=== PATIENT | female | born 1950 | race Asian ===

== ENCOUNTER 2019-05-31 16:23 | Outpatient (CLI) | payer MEDICARE, MEDICAID | END 2019-05-31 23:59 | disposition home or self-care (01) | LOC: RAD 16:23 | PROVIDERS: ATTEND Internal Medicine Hematology & Oncology | DX: R06.00 Dyspnea, unspecified (principal); C16.9 Malignant neoplasm of stomach, unspecified | CPT/HCPCS: 71045-TC ==

== ENCOUNTER 2019-07-11 14:02 | Inpatient (IN) | payer MEDICARE, MEDICAID ==
[2019-07-11] VITALS (24 sets, daily range): BP systolic 80–146; BP diastolic 47–86
[~2019-07-11] VITALS: Ht 152.4 cm; Wt 63.5 kg
--- NOTE | 2019-07-11 14:06 | NUR ---
EKATERINA, FROM [facility], C/O "ALLERGIC REACTION TO CHEMO" , "I FEEL COLD, SHAKY AND DIFFICULTY BREATHING". BG 108, BENADRYL AND HYDROCODONE GIVEN TELECOMMUNICATIONS SUPPORT. TO ER BED 8, HOOKED TO MONITOR, CHANGED TO GOWN, WARM BLANKET PROVIDED, AWAITING MD GRACE.
--- NOTE | 2019-07-11 14:18 | NUR ---
DR GODINEZ AT BEDSIDE
[2019-07-11] MEDS ORDERED: IV NS 0.9% 1,000 ML BAG IV ONE ×2 (14:30→16:00)
[2019-07-11] MEDS ORDERED: ACETAMINOPHEN ES 500 MG TABLET PO ONE (14:30)
[2019-07-11] MEDS ORDERED: FAMOTIDINE/PF INJ 20 MG/2 ML VIAL IV ONE ×2 (14:30→14:38)
[2019-07-11] MEDS ORDERED: ACETAMINOPHEN ES 500 MG TABLET ONE (14:37)
[2019-07-11 14:46] LABS: BASOPHILS % (AUTO) 0.1 % (0.0-2.0); EOSINOPHILS % (AUTO) 0.2 % (0.0-6.0); HEMATOCRIT 33 % (33-45); HEMOGLOBIN 10.9 g/dL (11.5-14.8); LYMPHOCYTES # (AUTO) 0.4 /CMM (0.8-4.8); LYMPHOCYTES % (AUTO) 5.2 % (20.0-44.0); MEAN CORPUSCULAR HGB CONC 33 g/dl (31.0-36.0); MEAN CORPUSCULAR VOLUME 100 fL (82-100); MONOCYTES # (AUTO) 0.2 /CMM (0.1-1.30); MONOCYTES % (AUTO) 2.4 % (2.0-12.0); NEUTROPHILS % (AUTO) 92.1 % (43.0-81.0); PLATELET COUNT (AUTO) 262 /CMM (150-450); RED BLOOD CELL COUNT(AUTO) 3.31 MIL/uL (4.0-5.2); WHITE BLOOD COUNT (AUTO) 7.6 K/uL (4.3-11.0)
[2019-07-11 14:54] LABS: CREATININE 0.6 mg/dL (0.6-1.3); POTASSIUM 3.1 mmol/L (3.5-5.1)
[2019-07-11 15:00] LABS: ALBUMIN 2.7 g/dL (3.4-5.0); BILIRUBIN,DIRECT 0.2 mg/dL (0.0-0.2); BILIRUBIN,TOTAL 0.4 mg/dL (0.2-1.0); TOTAL PROTEIN, SERUM 5.8 g/dL (6.4-8.2)
[2019-07-11] MEDS ORDERED: POTASSIUM CHLORIDE 20 MEQ TAB.PRT.SR PO ONE ×2 (15:21→15:30)
[2019-07-11 15:41] LABS: APPEARANCE,URINE Clear (CLEAR); BILIRUBIN,URINE SMALL (NEGATIVE); BLOOD, URINE Negative Ery/uL (NEGATIVE); COLOR,URINE Dark (YELLOW); KETONES,URINE 80 (NEGATIVE); LEUKOCYTE ESTERASE ,URINE Negative (NEGATIVE); NITRITE, URINE Negative (NEGATIVE); PH,URINE 5.5 (5.0-8.0); PROTEIN,URINE Negative (NEGATIVE); UGLUCOSE Negative (NEGATIVE); UROBILINOGEN,URINE 0.2 EU/dL (0.2)
[2019-07-11 16:00] LABS: BACTERIA,URINE None seen /HPF (None Seen); RBC,URINE 0-2 /HPF (0-2)
[2019-07-11] MEDS ORDERED: VANCOMYCIN 1 GM in IV D5W 250 ML IV ONE (16:00)
[2019-07-11] MEDS ORDERED: CEFEPIME 1 GM in IV D5W 50 ML IV ONE (16:00)
[2019-07-11 16:01] LABS: SQUAMOUS EPITHELIAL CELL,UR Few /HPF (None Seen)
--- NOTE | 2019-07-11 16:31 | NUR ---
CALLED FOR BED
--- NOTE | 2019-07-11 16:35 | NUR ---
EPIC CLOUD SOFTWARE ENGINEER PAGED
[2019-07-11] MEDS ORDERED: LORA1TAB PO (16:52)
[2019-07-11] MEDS ORDERED: ZOLP5TAB8 PO (16:52)
[2019-07-11] MEDS ORDERED: PANT40TA4 PO (16:52)
--- NOTE | 2019-07-11 16:55 | NUR ---
room [id number]
[2019-07-11] MEDS ORDERED: NOREPINEPHRINE 8 MG in IV D5W 500 ML IV ONE (17:00)
--- NOTE | 2019-07-11 17:03 | NUR ---
REPORT GIVEN TO JARED OF ICU
[2019-07-11] MEDS ORDERED: MAG HYDROX/AL HYDROX/SIMETH 30 ML UDC PO PRN (18:00)
[2019-07-11] MEDS ORDERED: HYDROCODONE/APAP 5/325MG 1 EACH TABLET PO PRN (18:00)
[2019-07-11] MEDS ORDERED: MAGNESIUM HYDROXIDE 30 ML UDC PO PRN (18:00)
[2019-07-11] MEDS ORDERED: IV NS 0.9% 1,000 ML IV SCH (18:00)
[2019-07-11] MEDS ORDERED: ACETAMINOPHEN 325 MG TABLET PO PRN (18:00)
[2019-07-11] MEDS ORDERED: Z GUARD REMEDY 2 OZ OINT TP PRN (18:00)
[2019-07-11] MEDS ORDERED: ONDANSETRON HCL/PF 4 MG/2 ML VIAL IVP PRN (18:00)
--- NOTE | 2019-07-11 18:00 | NUR ---
PATIENT TRANSFERRED TO ICU WITH RN AND EMT.
--- NOTE | 2019-07-11 18:08 | NUR ---
RN NOTES RECEIVED PT FROM 254 FROM ER , PT IS A/Ox4, ON RA , RESPIRATION EVEN AND UNLABORED, NO SOB NOTED, BP =98/65 , PT ON LEVO GTT AT 10MCG/MIN. PT JARRETT ANY DISTRESS , PT STATED FEELS BETTER NOW , ON TELE SR HR IN 70'S ,PT C/O PAIN ON L HAND IV SITE G 18 , SWELLING NOTED AT THE SITE, IV D/MAKAYLA, PT VOIDING PER BEDPAN, R UPPER CHEST PORT-A-CATH SITE , CLEAN, DRY AND INTACT, SR UP x3, CALL LIGHT WITHIN EASY REACH , BED LOCKED AND IN LOWEST POSITION, CONTINUE TO MONITOR .
[2019-07-11] MEDS ORDERED: NOREPINEPHRINE 8 MG in IV D5W 500 ML IV PRN (18:30)
--- NOTE | 2019-07-11 19:00 | NUR ---
RN NOTES REPORT GIVEN TO PM NURSE FOR CONTINUITY OF CARE .
[2019-07-11 19:09] LABS: ALBUMIN 2.5 g/dL (3.4-5.0); BILIRUBIN,DIRECT 0.2 mg/dL (0.0-0.2); BILIRUBIN,TOTAL 0.5 mg/dL (0.2-1.0); TOTAL PROTEIN, SERUM 5.5 g/dL (6.4-8.2)
--- NOTE | 2019-07-11 19:30 | NUR ---
RN NOTES RECEIVED PATIENT ASLEEP ON BED. BREATHING EVEN AND UNLABORED IN ROOM AIR. SATURATION 95%. AFEBRILE. PATIENT IS AOX4 SR ON TELE MONITOR. DENIES ANY PAIN OR NAUSEA AND VOMITING. IV SITE ON RIGHT CHEST MADAI CATH WITH NS @ 125 ML/HR INTACT AND PATENT AND LEVOPHED @ 6 MCG/MIN TITRATED PROTOCOL ORDER. REMINDED TO USED CALL LIGHT FOR ASSISTANCE. ABLE TO TEACH BACK. KEPT PT CLEAN AND DRY. WILL CONTINUE TO MONITOR.
--- NOTE | 2019-07-11 19:45 | NUR ---
RN N0TES S/E BY DR. WALLACE AND DR. LAM AT BEDSIDE.
[2019-07-11] MEDS ORDERED: FEE PK DOSING 1 MIN EA MC ONE (19:59)
[2019-07-11] MEDS: CEFEPIME 2 GM in IV NS 0.9% 50 ML IV SCH (20:52)
[2019-07-11] MEDS: LORAZEPAM 1 MG TABLET PO SCH (21:13)
--- NOTE | 2019-07-11 21:30 | NUR ---
RN NOTES CALLED AND SPOKE WITH DR. FALLON THAT THE PATIENT WANTS DNR/DNI CODE STATUS.
[2019-07-11] MEDS: VANCOMYCIN 0.75 GM in IV D5W 250 ML IV SCH (21:50)
--- NOTE | 2019-07-11 21:50 | NUR ---
RN NOTES CALLED PHARMACY AND SPOKE TO RANDALL CLARIFIED THAT VANCOMYCIN WAS GIVEN AT 5PM TODAY AND THERE'S A SCHEDULE VANCOMYCIN AT 10PM. PER RANDALL TO GIVE THE DOSE AT 5 AM AND FOLLOW UP PHARMACY IN THE MORNING.
[2019-07-11] MEDS ORDERED: ZOLPIDEM TARTRATE 5 MG TABLET PO SCH (22:00)
[2019-07-12] VITALS (97 sets, daily range): BP systolic 78–146; BP diastolic 14–103
[2019-07-12 04:23] LABS: BASOPHILS % (AUTO) 0.2 % (0.0-2.0); EOSINOPHILS % (AUTO) 0.3 % (0.0-6.0); HEMATOCRIT 31 % (33-45); HEMOGLOBIN 10.5 g/dL (11.5-14.8); LYMPHOCYTES # (AUTO) 1.2 /CMM (0.8-4.8); LYMPHOCYTES % (AUTO) 11.2 % (20.0-44.0); MEAN CORPUSCULAR HGB CONC 34 g/dl (31.0-36.0); MEAN CORPUSCULAR VOLUME 99 fL (82-100); MONOCYTES # (AUTO) 1.3 /CMM (0.1-1.30); MONOCYTES % (AUTO) 11.8 % (2.0-12.0); NEUTROPHILS # (AUTO) 8.3 /CMM (1.8-8.9); NEUTROPHILS % (AUTO) 76.5 % (43.0-81.0); PLATELET COUNT (AUTO) 284 /CMM (150-450); RED BLOOD CELL COUNT(AUTO) 3.12 MIL/uL (4.0-5.2); WHITE BLOOD COUNT (AUTO) 10.9 K/uL (4.3-11.0)
[2019-07-12] MEDS: VANCOMYCIN 0.75 GM in IV D5W 250 ML IV SCH ×3 (04:46→22:40)
[2019-07-12 04:51] LABS: CALCIUM, SERUM 7.6 mg/dL (8.5-10.1); CREATININE 0.5 mg/dL (0.6-1.3); MAGNESIUM 1.5 mg/dL (1.8-2.4); PHOSPHORUS 2.6 mg/dL (2.5-4.9)
[2019-07-12 04:56] LABS: POTASSIUM 2.6 mmol/L (3.5-5.1)
[2019-07-12] MEDS: CEFEPIME 2 GM in IV NS 0.9% 50 ML IV SCH (05:02)
[2019-07-12] MEDS: IV NS 0.9% 1,000 ML IV PRN ×2 (06:04→16:30)
[2019-07-12] MEDS: POTASSIUM CL. PREMIX PERIPHER. 50 ML IV SCH ×6 (06:38→13:05)
--- NOTE | 2019-07-12 07:05 | NUR ---
RN NOTES PATIENT ASLEEP WELL ON BED. BREATHING EVEN AND UNLABORED IN ROOM AIR. SR ON TELE MONITOR. AFEBRILE THROUGHOUT THE SHIFT. NO CHANGE OF CONDITION. NO SHAKING, NO SOB. IV SITE ON RCW MADAI CATH WITH LEVOPHED TITRATED PROTOCOL ORDER AND KCL STARTED AT THE SAME SITE. ALSO IV ON LEFT HAND G 20 WITH IVF AND ATB. KEPT PT CLEAN AND DRY. ALL DUE MEDICINE GIVEN ORDERED. PATIENT AMBULATE WELL IN THE BATHROOM BUT ENCOURAGED TO USE BEDSIDE COMMODE KIN DUE OF HER BP TO PREVENT FALL OR ANY INJURY. PATIENT SAID THAT SHE WILL TRY. ENDORSED CONTINUITY OF CARE TO AM NURSE.
--- NOTE | 2019-07-12 07:05 | NUR ---
RN NOTES RECEIVED PATIENT ON BED, A/OX4, ON RA, NO SOB NOTED, BREATHING EVEN AND UNLABORED , O2 SAT WNL, ON TELE SR, DENIES ANY PAIN OR NAUSEA AND VOMITING. RIGHT CHEST MADAI CATH SITE AND L HAND IV SITE CLEAN, DRY AND INTACT, NS @ 125 ML/HR AND LEVOPHED @ 4 MCG/MIN RUNNING , WILL TITRATE PROTOCOL ORDER. CALL LIGHT WITHIN EASY REACH, BED LOCKED AND IN LOWEST POSITION, KEPT PT CLEAN AND DRY. WILL CONTINUE TO MONITOR.
[2019-07-12] MEDS: PANTOPRAZOLE 40 MG TABLET.DR PO SCH (08:01)
[2019-07-12] MEDS: LORAZEPAM 1 MG TABLET PO SCH ×2 (08:01→20:54)
[2019-07-12] MEDS: Magnesium 1GM/D5W 100ML PREMIX 100 ML IV SCH ×2 (10:09→11:26)
--- NOTE | 2019-07-12 11:30 | NUR ---
RN NOTES ORDER RECEIVED FROM DR LAM TO TITRATE LEVO TO KEEP MAP>65. PT OUT OF BED TO BEDSIDE COMMODE WITH ASSIST , CONTINUE TO MONITOR.
[2019-07-12] MEDS: CEFEPIME 2 GM in IV D5W 100 ML IV SCH ×2 (13:08→20:54)
--- NOTE | 2019-07-12 15:00 | NUR ---
RN NOTES PT STABLE , JARRETT ANY DISTRESS , SUPPORTIVE FAMILY AT THE BEDSIDE, ON LEVO , CONTINUE TO MONITOR VSS AND TITRATE LEVO PER MD AND PROTOCOL ORDER .
--- NOTE | 2019-07-12 17:15 | NUR ---
RN NOTES LEVO GTT OFF AT THIS TIME, BP STABLE, MAP>65, CONTINUE TO MONITOR . PT JARRETT ANY DISTRESS .
--- NOTE | 2019-07-12 18:23 | NUR ---
RN NOTES BP STABLE, PT STATED FEELS BETTER TODAY , NO SIGN AND SYMPTOMS OF DISTRESS NOTED , WILL ENDORSE TO SALES APPRENTICE NURSE FOR CONTINUITY OF CARE .
--- NOTE | 2019-07-12 19:30 | NUR ---
ICU/RN NOTES RECEIVED PT.AWAKE ALERT,ORIENTED X4.MONITOR SHOWS NSR W/OUT ECTOPY.OFFERS NO COMPLAINTS,DENIES PAIN.ON LEVOPHED DRIP AT 4MCG/MIN.TO MAINTAIN MAP>65.LUNGS CLEAR.ROSEANN TO ABDOMEN INTACT,NO REDNES OR SWELLING AT SITE. Addendum: 07/13/19 at 0536 by SHAREE IRAHETA RN NO ROSEANN ON ABDOMEN.ABDOMEN SOFT W/ HYPOACTIVE BOWEL SOUNDS
[2019-07-12] MEDS: NOREPINEPHRINE 8 MG in IV D5W 500 ML IV PRN (19:58)
--- NOTE | 2019-07-12 20:30 | NUR ---
ICU/RN NOTES DR WALLACE CALLED TO INQUIRE REGARDING PT.,CONDITION REPORT GIVEN.NO ORDERS RECEIVED.
[2019-07-12] MEDS: ZOLPIDEM TARTRATE 5 MG TABLET PO PRN (21:35)
--- NOTE | 2019-07-12 23:00 | NUR ---
ICU/RN NOTES ASSISTED OOB TO URINATE,PT STABLE ON HERS FEET.BACK TO BED W/OUT INCIDENT.
[2019-07-13] VITALS (84 sets, daily range): BP systolic 83–139; BP diastolic 46–81
[2019-07-13] MEDS: IV NS 0.9% 1,000 ML IV PRN ×3 (02:39→22:01)
[2019-07-13 04:25] LABS: BASOPHILS % (AUTO) 0.2 % (0.0-2.0); EOSINOPHILS % (AUTO) 0.4 % (0.0-6.0); HEMATOCRIT 32 % (33-45); HEMOGLOBIN 10.8 g/dL (11.5-14.8); LYMPHOCYTES # (AUTO) 1.4 /CMM (0.8-4.8); LYMPHOCYTES % (AUTO) 12.1 % (20.0-44.0); MEAN CORPUSCULAR HGB CONC 34 g/dl (31.0-36.0); MEAN CORPUSCULAR VOLUME 99 fL (82-100); MONOCYTES # (AUTO) 1.1 /CMM (0.1-1.30); MONOCYTES % (AUTO) 9.8 % (2.0-12.0); NEUTROPHILS % (AUTO) 77.5 % (43.0-81.0); PLATELET COUNT (AUTO) 301 /CMM (150-450); RED BLOOD CELL COUNT(AUTO) 3.26 MIL/uL (4.0-5.2); WHITE BLOOD COUNT (AUTO) 11.6 K/uL (4.3-11.0)
[2019-07-13 04:39] LABS: CREATININE 0.5 mg/dL (0.6-1.3)
[2019-07-13] MEDS: CEFEPIME 2 GM in IV D5W 100 ML IV SCH ×3 (04:55→20:45)
[2019-07-13 05:04] LABS: POTASSIUM 2.7 mmol/L (3.5-5.1)
--- NOTE | 2019-07-13 06:00 | NUR ---
ICU/RN NOTES. REMAINS ON LEVOPHED DRIP AT 3MCG/MIN.IN NSR.
--- NOTE | 2019-07-13 08:00 | NUR ---
ICU/RN INITIAL NOTES,AM RECEIVED BEDSIDE REPORT FROM NIGHT NURSE. PT ALERT, AWAKE, FOLLOWS COMMANDS. PT ROOM AIR, NO DISTRESS. LEVO INFUSING AT 4MCG/KG/MIN FOR BP SUPPORT, WILL TITRATE PER PROTOCOL. IVF PER EMAR. SINUS ON TELE. ALL NEEDS WILL BE ATTENDED TO, SAFETY MEASURES TAKEN, BED IN LOW POSITION, SIDE RIAL UP, CALL LIGHT WITHIN REACH. PT ABLE TO USE BEDSIDE COMMODE, WILL CONTINUE CARE.
[2019-07-13] MEDS: POTASSIUM CL. PREMIX PERIPHER. 50 ML IV SCH ×8 (08:14→17:43)
[2019-07-13] MEDS: PANTOPRAZOLE 40 MG TABLET.DR PO SCH (08:14)
[2019-07-13] MEDS: LORAZEPAM 1 MG TABLET PO SCH ×2 (08:14→21:39)
[2019-07-13] MEDS: VANCOMYCIN 0.75 GM in IV D5W 250 ML IV SCH ×2 (09:35→17:43)
--- NOTE | 2019-07-13 10:45 | NUR ---
ICU/RN: LEVOPHED TURNED OFF. BP STABLE VS 112/68, HR 21, RR 21. WILL CONTINUE TO MONITOR.
--- NOTE | 2019-07-13 18:55 | NUR ---
ICU/RN ENDING NOTES,AM BEDSIDE REPORT WILL BE ENDORSED. PT AAOX4. ALL NEEDS ATTENDED TO, VSS. PT RESTING COMFORTABLY IN BED. BEDSIDE COMMODE NEXT TO BED. ALL NEEDS ATTENDED TO, SAFETY MEASURES TAKEN, BED IN LOW POSITION, SIDE RAILS UP, CALL LIGHT WITHIN REACH. WILL JOLENE.
--- NOTE | 2019-07-13 19:30 | NUR ---
ICU/RN NOTES RECEIVED PT AWAKE ALERT OX4.ON ROOM AIR SAT OF 95%.MONITOR SHOWS NSR.OFERS NO COMPLAINTS.DENIES PAIN. 194O DR. WALLACE IN TO SEE PT.ORDERS RECEIVED.PT. IS A FULL CODE PER HER WISHES.
--- NOTE | 2019-07-13 21:00 | NUR ---
ICU/RN NOTES OOB TO BEDSIDE COMMODE TO URINATE.BACK TO BED WITHOUT INCIDENT.SBP 90'S TO 100'S
[2019-07-13] MEDS: ZOLPIDEM TARTRATE 5 MG TABLET PO PRN (21:39)
--- NOTE | 2019-07-13 22:30 | NUR ---
ICU/RN NOTES SLEEPING,RESPIRATIONS REGULAR AND EVEN.MONITOR NSR.SBP 80=90MMHG.GETS OOB TO VOID.
[2019-07-14] VITALS (76 sets, daily range): BP systolic 80–124; BP diastolic 46–81
[2019-07-14] MEDS: VANCOMYCIN 0.75 GM in IV D5W 250 ML IV SCH ×2 (01:00→08:53)
--- NOTE | 2019-07-14 01:05 | NUR ---
ICU/RN NOTES CALL PLACED TO DR. CISNEROS REGARDING PT'S BP OF 81/46MMHG AFTER DETAILED REORT GIVEN.TRANSFER TO MS DC'D.STARTED ON LEVOPHED DRIP AT 2MCG/MIN.PT AWAKE ALERT.
[2019-07-14] MEDS ORDERED: NOREPINEPHRINE 4 MG/4 ML AMPUL IV ONE (01:14)
[2019-07-14] MEDS: NOREPINEPHRINE 8 MG in IV D5W 500 ML IV PRN (01:18)
--- NOTE | 2019-07-14 01:27 | NUR ---
ICU/RNNOTES KB=852/65 FROM 81/46 AFTER STARTING NOREPHI.
--- NOTE | 2019-07-14 03:40 | NUR ---
ICU/RN NOTES OOB TO BEDSIDE TO VOID,LINEN CHANGED AND CLEANSED PT.BACK TO BED W/OUT INCIDENT.
--- NOTE | 2019-07-14 03:45 | NUR ---
ICU/RN NOTES REPORT AND CARE OF PT. GIVEN TO RAUL BERNAL.
[2019-07-14] MEDS: CEFEPIME 2 GM in IV D5W 100 ML IV SCH ×3 (04:40→21:21)
--- NOTE | 2019-07-14 06:54 | NUR ---
INSPECTOR HEATING AND REFRIGERATION CLOSING NOTE ENDORSED PT TO AM RN FOR JOLENE, STARTED ON LEVO@2MCG, WILL ENDORSE TO F/U WITH MD.
--- NOTE | 2019-07-14 07:05 | NUR ---
RN NOTES RECEIVED PT ON BED, A/Ox4, ON RA , O2 SAT WNL ,NO SOB NOTED, LEVO INFUSING AT 2MCG/KG/MIN FOR BP SUPPORT, WILL TITRATE PER PROTOCOL. ON TELE SR , NS AT 125CC/HR RUNNING, SR UP X3, CALL LIGHT WITHIN EASY REACH, BED LOCKED AND IN LOWEST POSITION, CONTINUE TO MONITOR .
[2019-07-14] MEDS: IV NS 0.9% 1,000 ML IV PRN ×2 (07:14→15:46)
[2019-07-14] MEDS: PANTOPRAZOLE 40 MG TABLET.DR PO SCH (08:15)
[2019-07-14] MEDS: LORAZEPAM 1 MG TABLET PO SCH ×2 (08:15→21:54)
[2019-07-14 08:27] LABS: BASOPHILS % (AUTO) 0.2 % (0.0-2.0); EOSINOPHILS % (AUTO) 0.6 % (0.0-6.0); HEMATOCRIT 33 % (33-45); HEMOGLOBIN 11.1 g/dL (11.5-14.8); LYMPHOCYTES # (AUTO) 1.5 /CMM (0.8-4.8); LYMPHOCYTES % (AUTO) 16.7 % (20.0-44.0); MEAN CORPUSCULAR HGB CONC 33 g/dl (31.0-36.0); MEAN CORPUSCULAR VOLUME 98 fL (82-100); MONOCYTES # (AUTO) 0.9 /CMM (0.1-1.30); MONOCYTES % (AUTO) 9.8 % (2.0-12.0); NEUTROPHILS # (AUTO) 6.6 /CMM (1.8-8.9); NEUTROPHILS % (AUTO) 72.7 % (43.0-81.0); PLATELET COUNT (AUTO) 320 /CMM (150-450); RED BLOOD CELL COUNT(AUTO) 3.38 MIL/uL (4.0-5.2); WHITE BLOOD COUNT (AUTO) 9.1 K/uL (4.3-11.0)
[2019-07-14 08:39] LABS: CREATININE 0.4 mg/dL (0.6-1.3); POTASSIUM 3.1 mmol/L (3.5-5.1)
[2019-07-14 08:46] LABS: BAND % (MANUAL) 12 % (0.0-5.0); EOSINOPHILS % (MANUAL) 1 % (0-4); LYMPHOCYTES % (MANUAL) 14 % (16-48); METAMYELOCYTES % 3 % (0-0); MONOCYTES % (MANUAL) 8 % (0-11.0); NEUTROPHILS % (MANUAL) 62 (42-76)
[2019-07-14] MEDS: POTASSIUM CHLORIDE 20 MEQ POWDER PACKET PO SCH ×2 (09:20→10:24)
--- NOTE | 2019-07-14 11:15 | NUR ---
RN NOTES LEVO OFF AT THIS TIME ,BP STABLE, PT JARRETT ANY DISTRESS, CONTINUE TO MONITOR.
--- NOTE | 2019-07-14 15:00 | NUR ---
RN NOTES VSS STABLE, LEVO STILL OFF , BP STABLE, PT OUT OF THE BED TO BSC WITH ASSIST, VOIDING WELL, CONTINUE TO MONITOR.
[2019-07-14] MEDS: VANCOMYCIN 1 GM in IV D5W 250 ML IV SCH (16:06)
--- NOTE | 2019-07-14 18:45 | NUR ---
RN NOTES PT ON THE PHONE TALKING WITH THE FAMILY, VSS STABLE, DENIES ANY DISTRESS , WILL ENDORSE TO DIRECTOR SEARCH NURSE FOR CONTINUITY OF CARE .
--- NOTE | 2019-07-14 20:01 | NUR ---
FUMIGATOR AND STERILIZER. MINITIAL ASSESSMENT, RECEIVED THE PT REST ON THE BED. AWAKE, ALERT. FOLLOW COMMANDS. COOK SHORT ORDER SHOWING NSR. MIV RT UPPER CHEST MADAI CATH .LT HAND 20G. IVF NS 125ML/HPT ON ROOM AIR SAT 98%. NO ACUTE DISTRESS NOTED. HOB ELEVATED. WILL CONTINUE TO MONITOR VITALS.
[2019-07-15] VITALS (43 sets, daily range): BP systolic 83–130; BP diastolic 44–78
[2019-07-15] MEDS: ZOLPIDEM TARTRATE 5 MG TABLET PO PRN ×2 (00:19→21:24)
[2019-07-15] MEDS: IV NS 0.9% 1,000 ML IV PRN ×3 (00:31→17:10)
[2019-07-15] MEDS ORDERED: NOREPINEPHRINE 4 MG/4 ML AMPUL IV ONE (02:04)
[2019-07-15] MEDS: VANCOMYCIN 1 GM in IV D5W 250 ML IV SCH ×3 (02:40→17:10)
--- NOTE | 2019-07-15 05:14 | NUR ---
SEWING TEACHER. AM CARE, ORAL CARE GIVEN.LINEN CHANGED, REMAINING SAME IVF NS 125ML/H. ROOM AIR. SAT 96%. NO ACUTE DISTRESS NOTED, BODY LINER SHOWING NSR. HOB ELEVATED. VITALS STABLE. WILL CONTINUE TO MONITOR VITALS.
[2019-07-15 05:37] LABS: BASOPHILS % (AUTO) 0.4 % (0.0-2.0); EOSINOPHILS % (AUTO) 1.2 % (0.0-6.0); HEMATOCRIT 30 % (33-45); HEMOGLOBIN 10.3 g/dL (11.5-14.8); LYMPHOCYTES # (AUTO) 1.2 /CMM (0.8-4.8); LYMPHOCYTES % (AUTO) 17.4 % (20.0-44.0); MEAN CORPUSCULAR HGB CONC 34 g/dl (31.0-36.0); MEAN CORPUSCULAR VOLUME 98 fL (82-100); MONOCYTES # (AUTO) 0.6 /CMM (0.1-1.30); MONOCYTES % (AUTO) 8.9 % (2.0-12.0); NEUTROPHILS # (AUTO) 5.2 /CMM (1.8-8.9); NEUTROPHILS % (AUTO) 72.1 % (43.0-81.0); PLATELET COUNT (AUTO) 315 /CMM (150-450); RED BLOOD CELL COUNT(AUTO) 3.09 MIL/uL (4.0-5.2); WHITE BLOOD COUNT (AUTO) 7.1 K/uL (4.3-11.0)
[2019-07-15] MEDS: CEFEPIME 2 GM in IV D5W 100 ML IV SCH ×3 (05:59→21:24)
[2019-07-15 06:48] LABS: CALCIUM, SERUM 7.3 mg/dL (8.5-10.1); CREATININE 0.4 mg/dL (0.6-1.3); POTASSIUM 3.2 mmol/L (3.5-5.1)
--- NOTE | 2019-07-15 07:05 | NUR ---
RN NOTES RECEIVED PT ON BED A/Ox4, FOLLOW COMMANDS. PT ON RA, NO SOB NOTED, LOCOMOTIVE CRANE OPERATOR HELPER SHOWING NSR. RT UPPER CHEST PORT-A- CATH AND R HAND IV SITE G 20 ,SITES CLEAN, DRY AND INTACT, NS AT 125CC/HR RUNNING , HOB ELEVATED. WILL CONTINUE TO MONITOR
[2019-07-15] MEDS: PANTOPRAZOLE 40 MG TABLET.DR PO SCH (08:16)
[2019-07-15] MEDS: LORAZEPAM 1 MG TABLET PO SCH ×2 (08:16→21:24)
[2019-07-15] MEDS ORDERED: POTASSIUM CHLORIDE 20 MEQ POWDER PACKET GT ONE (10:30)
--- NOTE | 2019-07-15 10:30 | NUR ---
RN NOTES K= 3.2, DR LAM NOTIFIED , NEW ORDER RECEIVED .
--- NOTE | 2019-07-15 16:00 | NUR ---
RN NOTES VSS STABLE, PT JARRETT ANY DISTRESS , REPORT GIVEN TO LAINEY BERNAL FOR CONTINUITY OF CARE , PT TRANSFERRED TO ROOM 322-1 , MED-SURG STATUS PER MD ORDER .
--- NOTE | 2019-07-15 17:00 | NUR ---
RECEIVED PATIENT AWAKE A/O X4, TRANSFERRED VIA WHEELCHAIR. BREATHING UNLABORED AND EVEN, ON ROOM AIR. SKIN INTACT. PATIENT HAC RIGHT CHEST MADAI CATH , FLUSHING WELL, RIGHT WRIST 22G HL, FLUSHING WELL. PATIENT ORIENTED TO UNIT AND ROOM. PATIENT ABLE TO MAKE NEEDS KNOWN, PATIENT AMBULATES WITH HELP. WILL CONTINUE TO MONITOR .
--- NOTE | 2019-07-15 19:13 | NUR ---
ALL NEEDS ATTENDED. WILL ENDORSE TO NEXT SHIFT FOR JOLENE.
[2019-07-16] VITALS: BP 110/62
[2019-07-16] MEDS: VANCOMYCIN 1 GM in IV D5W 250 ML IV SCH ×2 (00:25→09:10)
[2019-07-16 04:00] VITALS: BP 120/56
[2019-07-16] MEDS: CEFEPIME 2 GM in IV D5W 100 ML IV SCH (04:50)
[2019-07-16 07:06] LABS: BASOPHILS # (AUTO) 0.1 /CMM (0.0-0.2); BASOPHILS % (AUTO) 0.8 % (0.0-2.0); EOSINOPHILS % (AUTO) 0.7 % (0.0-6.0); HEMATOCRIT 34 % (33-45); HEMOGLOBIN 11.2 g/dL (11.5-14.8); LYMPHOCYTES # (AUTO) 1.4 /CMM (0.8-4.8); LYMPHOCYTES % (AUTO) 20.3 % (20.0-44.0); MEAN CORPUSCULAR HGB CONC 34 g/dl (31.0-36.0); MEAN CORPUSCULAR VOLUME 97 fL (82-100); MONOCYTES # (AUTO) 0.6 /CMM (0.1-1.30); MONOCYTES % (AUTO) 9.1 % (2.0-12.0); NEUTROPHILS # (AUTO) 4.7 /CMM (1.8-8.9); NEUTROPHILS % (AUTO) 69.1 % (43.0-81.0); PLATELET COUNT (AUTO) 356 /CMM (150-450); RED BLOOD CELL COUNT(AUTO) 3.46 MIL/uL (4.0-5.2); WHITE BLOOD COUNT (AUTO) 6.7 K/uL (4.3-11.0)
--- NOTE | 2019-07-16 07:46 | NUR ---
RN OPENING NOTES PT AWAKE AND RESTING IN BED. NO COMPLAINTS OF PAIN, SOB OR DISTRESS AT THIS TIME. PER PATIENT SHE "FEELS A LOT BETTER, AND IS READY TO GO HOME.", PT HAS RIGHT CHEST WALL PORTACATH AND RIGHT WRIST #22 IV. SAFETY PRECAUTIONS IN PLACE, BED IN LOWEST LOCKED POSITION, X2 SIDE RAILS UP AND CALL LIGHT WITHIN REACH. WILL CONTINUE TO MONITOR.
[2019-07-16 08:00] VITALS: BP_SYST 104; BP_SYST 175; BP_DIAS 71; BP_DIAS 75
[2019-07-16] MEDS ORDERED: LEVO500T75 PO (08:09)
[2019-07-16] MEDS ORDERED: POTASSIUM CHLORIDE 20 MEQ POWDER PACKET PO SCH (09:00)
[2019-07-16] MEDS: LORAZEPAM 1 MG TABLET PO SCH (09:10)
[2019-07-16] MEDS: PANTOPRAZOLE 40 MG TABLET.DR PO SCH (09:10)
[2019-07-16 09:42] LABS: CALCIUM, SERUM 8.7 mg/dL (8.5-10.1); CREATININE 0.5 mg/dL (0.6-1.3); POTASSIUM 3.5 mmol/L (3.5-5.1)
[2019-07-16 11:27] LABS: BAND % (MANUAL) 2 % (0.0-5.0); LYMPHOCYTES % (MANUAL) 20 % (16-48); MONOCYTES % (MANUAL) 10 % (0-11.0); NEUTROPHILS % (MANUAL) 68 (42-76)
--- NOTE | 2019-07-16 11:51 | NUR ---
ASPHALT WORKER NOTES PT STABLE AT DISCHARGE. IV AND PORT REMOVED PRIOR TO DISCHARGE. PATIENT WAS PICKED UP VIA [employer] [facility]. ID BAND REMOVED. ALL PATIENT BELONGINGS TAKEN WITH PATIENT AT DISCHARGE. DISCHARGE PAPERWORK DISCUSSED, COPIED, AND GIVEN TO THE PATIENT. PT LEFT UNIT AT 1151.
== END 2019-07-16 11:35 | disposition home or self-care (01) | DRG 871 ==
LOC: ER 14:06 → ICU 17:30 → MED 07-15 16:16
PROVIDERS: ADMIT Family Medicine; ATTEND Family Medicine
DX: A41.9 Sepsis, unspecified organism (principal); J15.9 Unspecified bacterial pneumonia; E44.0 Moderate protein-calorie malnutrition; N39.0 Urinary tract infection, site not specified; J98.11 Atelectasis; C16.9 Malignant neoplasm of stomach, unspecified; C88.4 Extranodal marginal zone B-cell lymphoma of mucosa-associated lymphoid tissue [MALT-lymphoma]; D63.0 Anemia in neoplastic disease; E87.6 Hypokalemia; R73.9 Hyperglycemia, unspecified; Z68.27 Body mass index [BMI] 27.0-27.9, adult; E78.5 Hyperlipidemia, unspecified; E83.42 Hypomagnesemia; I95.89 Other hypotension
CPT/HCPCS: 36415; 71045-TC; 80048-TC; 80061-TC; 80076-TC; 80202-TC; 81000-TC; 83605-TC; 83735-TC; 84100-TC; 84484-TC; 85025-TC; 85730-TC; 87040-TC; 87081-TC; 87086-TC; 87186-TC; A4216; G0378; J0692; J3370; J3475; J3480; J3490; J7030; J7050; J7060